=== PATIENT | male | born 1980 | race Caucasian/White ===

== ENCOUNTER 2020-08-09 12:32 | Emergency (ER) | payer BC ==
[~2020-08-09] VITALS: Ht 180.3 cm; Wt 86.4 kg
[~2020-08-09 12:32] MED LIST: ADVIL 200MG TA200 MG PO; BACTRIM DS 8001 TAB PO; CEPHALEXIN500 M1 PO; DOXYCYCLINE PO; LORTAB 5/500 501 TAB PO; NORCO 325 MG-51 TAB PO; TYLENOL 500MG500 MG PO; ZOFRAN 4MG T4 MG/TAB PO
[2020-08-09 12:42] VITALS: TEMP 97.9
[2020-08-09] MEDS ORDERED: VALIUM 2MG T2 MG/TAB PO (15:06)
[2020-08-09] MEDS ORDERED: MEDROL 4MG DOSPA4 MG PO (17:28)
[2020-08-09 17:52] VITALS: BP 130/81; PULSE 90
== END 2020-08-09 17:50 | disposition home or self-care (01) ==
LOC: COL.ER 12:32
DX: M62.830 Muscle spasm of back (principal)
CPT/HCPCS: J1170; J1885; J2360; J3360; J7120